=== PATIENT | male | born 1945 | race Caucasian/White ===

== ENCOUNTER 2024-02-04 20:45 | Inpatient (IN) | payer MEDICARE, BC ==
[~2024-02-04] VITALS: Ht 188 cm; Wt 84.4 kg
[2024-02-04] MEDS ORDERED: DIVA250T4 PO (21:26)
[2024-02-04] MEDS ORDERED: ATOR40TA PO (21:26)
[2024-02-04] MEDS ORDERED: APIX5TAB PO (21:26)
[2024-02-04] MEDS ORDERED: LOSA25TA27 PO (21:26)
[2024-02-04] MEDS ORDERED: POTA-88 PO (21:26)
[2024-02-04] MEDS ORDERED: RISP1TAB97 PO (21:26)
[2024-02-04 23:00] VITALS: BP 101/63; TEMP 98; O2SAT 96
[2024-02-04] MEDS ORDERED: LORAZEPAM 0.5 MG TABLET PO PRN (23:00)
[2024-02-04] MEDS ORDERED: MAGNESIUM HYDROXIDE 30 ML LIQUID UDC PO PRN (23:00)
[2024-02-04] MEDS ORDERED: ACETAMINOPHEN 325 MG TABLET PO PRN (23:00)
[2024-02-04] MEDS ORDERED: MAG HYDROX/AL HYDROX/SIMETH 30 ML LIQUID UDC PO PRN (23:00)
[2024-02-04] MEDS ORDERED: TEMAZEPAM 7.5 MG CAPSULE PO PRN ×2 (23:00)
[2024-02-04] MEDS: BLOOD SUGAR DIAGNOSTIC 1 EACH STRIP VI ONE (23:59)
[2024-02-05 07:49] VITALS: BP 96/57; TEMP 97.2; O2SAT 98
[2024-02-05] MEDS ORDERED: AMIO200T5 PO (11:40)
[2024-02-05 15:18] LABS: THYROID STIMULATING HORMONE 6.33 mIU/mL (0.358-3.740)
[2024-02-05 16:00] VITALS: BP 136/58; TEMP 97.6; O2SAT 98
[2024-02-05] MEDS: AMIODARONE HCL 200 MG TABLET PO SCH (16:27)
[2024-02-05] MEDS: APIXABAN 5 MG TABLET PO SCH (16:28)
[2024-02-05 20:20] VITALS: BP 127/78; TEMP 98.1; O2SAT 95
[2024-02-05] MEDS: ATORVASTATIN 40 MG TABLET PO SCH (21:06)
[2024-02-05] MEDS: LORAZEPAM 0.5 MG TABLET PO PRN (21:06)
[2024-02-05] MEDS: DIVALPROEX 250 MG TABLET.DR PO SCH (21:06)
[2024-02-06 07:46] LABS: BASOPHILS # (AUTO) 0.1 K/UL (0.0-0.2); BASOPHILS % (AUTO) 0.9 % (0.0-2.0); EOSINOPHILS # (AUTO) 0.2 K/uL (0.0-0.7); EOSINOPHILS % (AUTO) 3.2 % (0.0-7.0); HEMATOCRIT 42.2 % (36.7-47.1); HEMOGLOBIN 14.3 g/dL (12.5-16.3); LYMPHOCYTES # (AUTO) 1.5 K/uL (0.8-4.8); LYMPHOCYTES % (AUTO) 20.9 % (20.5-51.5); MEAN CORPUSCULAR HEMOGLOBIN 31.4 uug (23.8-33.4); MEAN CORPUSCULAR HGB CONC 34 g/dL (32.5-36.3); MEAN CORPUSCULAR VOLUME 92.4 fL (73.0-96.2); MONOCYTES % (AUTO) 14.5 % (0.0-11.0); NEUTROPHILS # (AUTO) 4.3 K/uL (1.8-8.9); NEUTROPHILS % (AUTO) 60.5 % (38.5-71.5); PLATELET COUNT (AUTO) 179 K/uL (152-348); RED BLOOD CELL COUNT(AUTO) 4.57 MIL/uL (4.06-5.63); RED CELL DISTRIBUTION WIDTH 13.4 % (12.1-16.2)
[2024-02-06 08:01] VITALS: BP 116/65; TEMP 98.2; O2SAT 93
[2024-02-06 08:05] LABS: DIFFERENTIAL COMMENT 1
[2024-02-06 08:08] LABS: CARBON DIOXIDE 32 mmol/L (21-32); CHLORIDE 105 mmol/L (98-107); CREATININE 1.4 mg/dL (0.6-1.3); GLUCOSE 72 mg/dL (74-106); POTASSIUM 4.3 mmol/L (3.5-5.1); SODIUM SERUM 141 mmol/L (136-145); UREA NITROGEN, BLOOD 19 mg/dL (7-18)
[2024-02-06 09:08] LABS: THYROID STIMULATING HORMONE 3.721 mIU/mL (0.358-3.740)
[2024-02-06] MEDS: LOSARTAN POTASSIUM 25 MG TABLET PO SCH (11:42)
[2024-02-06 15:00] VITALS: BP 107/61; TEMP 98.4; O2SAT 96
[2024-02-06] MEDS: DIVALPROEX 250 MG TABLET.DR PO SCH (18:12)
[2024-02-06 20:00] VITALS: BP 110/60; TEMP 98.6; O2SAT 96
[2024-02-07 08:00] VITALS: BP 143/83; TEMP 98; O2SAT 100
[2024-02-07 16:38] VITALS: BP 132/58; TEMP 98; O2SAT 100
[2024-02-07 20:00] VITALS: BP 110/76; TEMP 97.9; O2SAT 97
[2024-02-07] MEDS: DIVALPROEX 500 MG TABLET.DR PO SCH (20:47)
[2024-02-08 08:10] VITALS: BP 122/56; TEMP 98; O2SAT 98
[2024-02-08 16:07] VITALS: BP 135/64; TEMP 98; O2SAT 99
[2024-02-08 20:28] VITALS: BP 104/61; TEMP 97.8; O2SAT 98
[2024-02-09 08:06] VITALS: BP 158/102; TEMP 98; O2SAT 100
[2024-02-09 16:26] VITALS: BP 102/63; TEMP 98; O2SAT 100
[2024-02-09 20:09] VITALS: BP 136/68; TEMP 98.1; O2SAT 99
[2024-02-10 08:14] VITALS: BP 136/80; TEMP 97.4; O2SAT 100
[2024-02-10 16:22] VITALS: BP 118/86; TEMP 98; O2SAT 100
[2024-02-10 19:49] VITALS: BP 132/78; TEMP 98.1; O2SAT 98
[2024-02-11 07:09] LABS: METHYLMALONIC ACID 310 nmol/L (0-378)
[2024-02-11 07:30] VITALS: BP 92/48; TEMP 98; O2SAT 100
[2024-02-11 15:34] VITALS: BP 119/78; TEMP 98; O2SAT 99
[2024-02-11 20:00] VITALS: BP 97/60; TEMP 97.6; O2SAT 94
[2024-02-12 08:02] VITALS: BP 90/48; TEMP 98; O2SAT 99
[2024-02-12] MEDS: BENZTROPINE MESYLATE 0.5 MG TABLET PO SCH (08:52)
[2024-02-12 15:07] VITALS: BP 96/55; TEMP 98; O2SAT 96
[2024-02-12] MEDS ORDERED: BENZTROPINE MESYLATE 0.5 MG TABLET PO SCH (17:00)
[2024-02-12] MEDS: BENZTROPINE MESYLATE 1 MG TABLET PO SCH (17:40)
[2024-02-12 20:00] VITALS: BP 119/66; TEMP 97.4; O2SAT 96
[2024-02-13 07:11] LABS: BASOPHILS % (AUTO) 0.6 % (0.0-2.0); EOSINOPHILS # (AUTO) 0.1 K/uL (0.0-0.7); EOSINOPHILS % (AUTO) 1.6 % (0.0-7.0); HEMATOCRIT 42.1 % (36.7-47.1); HEMOGLOBIN 14.2 g/dL (12.5-16.3); LYMPHOCYTES # (AUTO) 1.8 K/uL (0.8-4.8); LYMPHOCYTES % (AUTO) 23.7 % (20.5-51.5); MEAN CORPUSCULAR HEMOGLOBIN 31.1 uug (23.8-33.4); MEAN CORPUSCULAR HGB CONC 34 g/dL (32.5-36.3); MEAN CORPUSCULAR VOLUME 91.9 fL (73.0-96.2); MONOCYTES # (AUTO) 0.9 K/uL (0.1-1.30); MONOCYTES % (AUTO) 11.7 % (0.0-11.0); NEUTROPHILS # (AUTO) 4.7 K/uL (1.8-8.9); NEUTROPHILS % (AUTO) 62.4 % (38.5-71.5); PLATELET COUNT (AUTO) 174 K/uL (152-348); RED BLOOD CELL COUNT(AUTO) 4.58 MIL/uL (4.06-5.63); RED CELL DISTRIBUTION WIDTH 13.2 % (12.1-16.2); WHITE BLOOD COUNT (AUTO) 7.5 K/uL (3.6-10.2)
[2024-02-13 07:12] LABS: DIFFERENTIAL COMMENT 1
[2024-02-13 07:56] LABS: ALANINE AMINOTRANSFERASE 18 U/L (16-63); ALKALINE PHOSPHATASE 48 U/L (50-136); ASPARTATE AMINOTRANSFERASE 13 U/L (15-37); BILIRUBIN,TOTAL 0.9 mg/dL (0.2-1.0); CALCIUM 8.7 mg/dL (8.5-10.1); CARBON DIOXIDE 29 mmol/L (21-32); CHLORIDE 100 mmol/L (98-107); CREATININE 1.3 mg/dL (0.6-1.3); GLUCOSE 92 mg/dL (74-106); POTASSIUM 3.9 mmol/L (3.5-5.1); SODIUM SERUM 134 mmol/L (136-145); TOTAL PROTEIN, SERUM 5.8 g/dL (6.4-8.2); UREA NITROGEN, BLOOD 20 mg/dL (7-18)
[2024-02-13 08:18] VITALS: BP 130/50; TEMP 98; O2SAT 94
[2024-02-13 16:08] VITALS: BP 135/70; TEMP 98; O2SAT 98
[2024-02-13 20:00] VITALS: BP 140/70; TEMP 97.3; O2SAT 96
[2024-02-14 08:12] VITALS: BP 104/80; TEMP 97.6; O2SAT 100
[2024-02-14 10:48] VITALS: BP 129/57
== END 2024-02-14 14:15 | DRG 885 ==
LOC: ER 20:46 → GPS 22:42
PROVIDERS: ADMIT Psychiatry & Neurology Psychosomatic Medicine; ATTEND Nurse Practitioner Family
DX: F39 Unspecified mood [affective] disorder (principal); N17.9 Acute kidney failure, unspecified; I48.92 Unspecified atrial flutter; F02.84 Dementia in other diseases classified elsewhere, unspecified severity, with anxiety; F02.83 Dementia in other diseases classified elsewhere, unspecified severity, with mood disturbance; G20.A1 Parkinson's disease without dyskinesia, without mention of fluctuations; E78.5 Hyperlipidemia, unspecified; I48.91 Unspecified atrial fibrillation; Z79.01 Long term (current) use of anticoagulants; Z86.73 Personal history of transient ischemic attack (TIA), and cerebral infarction without residual deficits; F20.9 Schizophrenia, unspecified; Z79.899 Other long term (current) drug therapy; G24.01 Drug induced subacute dyskinesia; F31.9 Bipolar disorder, unspecified
CPT/HCPCS: 36415; 70450; 80164; 83921; 84443; 85025; J3490